=== PATIENT | female | born 1980 | race Caucasian/White ===

== ENCOUNTER 2023-12-01 03:36 | Emergency (ER) | payer OTHER, SELFPAY ==
[2023-12-01 03:37] VITALS: BP 134/77; PULSE 90; RESP 20; O2SAT 88; BMI 35.2
[2023-12-01 04:24] VITALS: BP 126/65; PULSE 88; RESP 21; O2SAT 94
[2023-12-01] MEDS: Ondansetron ODT 4 MG TAB.RAPDIS TRANSLINGU (06:11)
--- NOTE | 2023-12-01 06:13 | ED.OVERDOSE ---
HPI - Overdose General Chief Complaint: Overdose Stated Complaint: od Source: patient Mode of arrival: ambulatory History of Present Illness HPI Narrative: 43-year-old female brought in by EMS after she was found unresponsive, bystanders conducted CPR, a total of 10 mg of Narcan was provided, patient herself denies any attempt to intentionally kill herself, EMS states that she used 3 bags of heroin Related Data Allergies Allergy/AdvReac Type Severity Reaction Status Date / Time No Known Allergies Allergy Unverified 07/05/20 15:30 [No Known Allergies*] Review of Systems Review of Systems: Pertinent positives and negatives as stated in HPI [facility] Past Medical History Source: nursing notes reviewed Social History Social History Unable to assess alcohol history related to: Unknown Smoked in Last 30 Days: No Use of substances other than those prescribed or required for medical reasons: Yes Substance Use Type: Marijuana Substance Use Frequency: Daily Advance Directives: No Patient : No Physical Exam Vital Signs: Vital Signs: Last Vital Signs Temp 98.4 F 12/01/23 06:21 Pulse 90 12/01/23 06:21 Resp 14 12/01/23 06:21 BP 133/69 12/01/23 06:21 Pulse Ox 96 12/01/23 06:21 O2 Del Method Room Air 12/01/23 06:21 O2 Flow Rate 3 12/01/23 04:24 BMI result Body Mass Index 35.2 VITAL SIGNS: Reviewed. GENERAL: Well developed, well nourished, in no acute distress. HEAD: Normocephalic/atraumatic EYES: PERRLA, EOMI EARS: Ext canals without abnormality NOSE: Nares patent bilateral OROPHARYNX: no oral lesions noted, posterior pharynx clear NECK: Supple, no adenopathy LUNGS: Normal breath sounds. No adventitious sounds or accessory muscle use. SpO2<94> CARDIOVASCULAR: Regular rate and rhythm without noted murmurs ABDOMEN: Soft, non-tender, non-distended with bowel sounds. MUSCULOSKELETAL: No tenderness, deformities, or effusions noted on gross inspection. EXTREMITIES: No cyanosis, clubbing or edema. SKIN: Inspection of the skin reveals no rashes NEUROLOGIC: Alert and oriented x 4. Strength and sensation to light touch were grossly intact x 4. Medications Administered Discontinued Medications Generic Name Dose Route Start Last Admin Trade Name Freq PRN Reason Stop Dose Admin Ondansetron HCl 4 mg 12/01/23 06:08 12/01/23 06:11 Ondansetron Odt 4 Mg Tab.Marlene MEJIA 12/01/23 06:09 4 mg ONCE ONE Administration Medical Decision Making Medical Decision Making MDM Narrative: 43-year-old female with history and clinical presentation consistent with accidental overdose, patient required 10 mg of Narcan, she denies any SI/HI and is not interested in detox at this time. Patient had an episode of vomiting which was able to be controlled with 1 sublingual Zofran. She states that she is feeling better and is tolerating p.o. intake and will be discharged. Differential Diagnosis Differential Diagnoses: The differential diagnosis associated with the presentation includes Please see the discussion above Admission/Observation Consideration of admission/observation: Escalation of care including admission/observation considered Please see the discussion above. Critical Care Time Critical Care Time Critical Care Time: Yes Total Critical Care Time: 30 Attestation: I personally attest to this time spent taking care of the patient. Discharge Plan Discharge Clinical Impression: Drug overdose, Heroin use Patient Disposition: Home, Self-Care Instructions: Adult Overdose (ED), Narcotic Use Disorder (ED) Additional Instructions: You have been discharged with home Narcan, please do not hesitate to return to the emergency room should you require assistance for any detox.
[2023-12-01 06:21] VITALS: BP 133/69; PULSE 90; RESP 14; TEMP 36.9; O2SAT 96
--- NOTE | 2023-12-01 06:26 | PC.NURSE ---
pt awake speaking clear full sentences, vomiting, diaphoretic, given 4mg zofran sublingual. now resting comfortably on stretcher - respirations even and unlabored. capnography/nasal cannula removed at MD Travis request, pt sating 96-97% on room air in no distress. plan of care ongoing
--- NOTE | 2023-12-01 08:02 | PC.NURSE ---
PT AWAKE AND TOLERATNG SMALL AMOUNTS OF PO FLUIDS. SHE IS CLEAR FOR DISCHARGE. PT STATES DCF IS COMING TO SEE HER AND ASKED THAT SHE WAIT HERE. SHE WAS AMBULATORY TO THE BATHROOM AND WILL WAIT FOR DCF A COURTESY IN THE ED.
[2023-12-01 08:04] VITALS: BP 140/81; PULSE 91; RESP 16; O2SAT 98
[2023-12-01 08:40] VITALS: BP 146/83; PULSE 78; RESP 18; TEMP 36.6; O2SAT 99
--- NOTE | 2023-12-01 09:36 | PC.NURSE ---
PT WITH DCF STAFF.
--- NOTE | 2023-12-01 11:02 | MHC.RECOVRN ---
Met with pt in ED pivot 2 after consult placed to Addiction Medicine for OUD after an OD. Pt had presented to the ED from home via ambulance for an OD requiring multiple narcan administration by EMS. Pt laying in bed, awake, alert, easily engages in conversation, has sister at bedside who she gave pemission to speak with. Pt reports heroin use for the first time last night. Pt cooperative and states she does not want or plan on using again, agrees to engaging in any treatment that is offered. Pt will call office to make an appointment with provider. Pt denies other questions or concerns. Discussed with Clemencia Díaz APRN.??
--- NOTE | 2023-12-01 11:10 | HO.SUDE ---
Patient was seen in ED after a reported overdose of Heroine at home, requiring multiple doses of Narcan and CPR by first responders. She admits to marijuana use, no other substances, states this is her first time trying Heroine last night. No reported family history of addiction, she was alert and oriented x4, cooperative, and engaged in conversation. No stated history of HIV, Hep C or TB, nor at noted risk at this time. Patient has family at bedside who are engaged and appear supportive. Recommended and patient agrees to make an appointment with our services outpatient. Patient is being discharged with our information, and Narcan.
--- NOTE | 2023-12-01 19:51 | PC.NURSE ---
UNSURE WHERE THIS PATIENT IS, NO ROOM ASSIGNED AND STAFF UNAWARE OF WHERE AND WHO SHE IS
== END 2023-12-01 19:50 | disposition home or self-care (01) ==
PROVIDERS: Emergency Provider Student in an Organized Health Care Education/Training Program
DX: T40.1X1A Poisoning by heroin, accidental (unintentional), initial encounter (principal); Y92.9 Unspecified place or not applicable; Z71.51 Drug abuse counseling and surveillance of drug abuser; F11.10 Opioid abuse, uncomplicated
CPT/HCPCS: 99284

== ENCOUNTER 2023-12-04 08:54 | Outpatient (AMB) | payer OTHER, SELFPAY ==
[2023-12-04 09:05] VITALS: BP 124/88; PULSE 99; O2SAT 94; BMI 34.7
--- NOTE | 2023-12-04 09:05 | A.OFFVISCC_ITS ---
Intake Vital Signs 12/04/23 09:05 Height 5 ft 4 in Weight 202 lb 2 oz BMI 34.7 BP 124/88 Blood Pressure Location Lt radial Position Sitting Pulse 99 Pulse Source Pulse Oximeter Pulse Oximetry (%) 94 Oxygen Delivery Method Room Air Intake Visit Reasons: MAT Intake Note: the patient presents as amat visit Photo Producer Required: No Allergies No Known Allergies [No Known Allergies*] Allergy (Unverified 12/04/23 09:07) Do you need a note to return to daycare/school/sports/work: No HPI MAT HPI Details Patient presents today for intake She was [place] [facility] [place] Her 3 children were home (2 of them minors), although she reports they were sleeping at the time She reports DCF has become involved and required her to have an evaluation She denies regular substance use, states she found the bag on the street 9 months ago, children had a snow day and she was curious ?pt minimizing She used the substance intranasally, denies ever having injected substances She denies any other substance use other than occasional marijuana use Has no current providers, uninterested in any referrals at this time NKA Hx tonsillectomy and LMP- does not get due to depo shot [facility] Social History Unable to assess alcohol history related to: Unknown Substance Use Type: Marijuana Review of Systems Const Reports as per HPI Physical Exam Vital Signs: Last Vital Signs Pulse 99 12/04/23 09:05 BP 124/88 12/04/23 09:05 Pulse Ox 94 12/04/23 09:05 Oxygen Delivery Method Room Air 12/04/23 09:05 BMI result Body Mass Index 34.7 Const General: no acute distress and alert Chest Chest palpation & inspection: normal inspection of the chest and normal palpation of entire chest wall Psych Appearance: grossly normal Mental Status: mental status grossly normal Speech and movement: Normal speech and movement present Affect: normal affect Attitude: cooperative Results AMB 14 Panel Urine Drug Screen Urine Marijuana (THC) Negative Last Edit by Nicole Urias CMA on 12/04/23 09:51 Urine Cocaine Negative Last Edit by Nicole Urias CMA on 12/04/23 09:51 Urine Morphine Negative Last Edit by Nicole Urias CMA on 12/04/23 09:51 Urine Methamphetamine Negative Last Edit by Nicole Urias CMA on 12/04/23 09:51 Urine Amphetamine Negative Last Edit by Nicole Urias CMA on 12/04/23 09:5 1 Urine Benzodiazepine Negative Last Edit by Nicole Urias CMA on 12/04/23 09:51 Urine Barbiturates Negative Last Edit by Nicole Urias CMA on 12/04/23 09: 51 Urine Methadone Negative Last Edit by Nicole Urias CMA on 12/04/23 09:51 Urine Buprenorphine Negative Last Edit by Nicole Urias CMA on 12/04/23 09 :51 Urine Tricyclic Antidepressant Negative Last Edit by Nicole Urias CMA on 12/04/23 09:51 Urine MDMA Negative Last Edit by Nicole Urias CMA on 12/04/23 09:51 Urine Oxycodone Negative Last Edit by Nicole Urias CMA on 12/04/23 09:51 Urine Phencyclidine Negative Last Edit by Nicole Urias CMA on 12/04/23 09 :51 Urine Propoxyphene Negative Last Edit by Nicole Urias CMA on 12/04/23 09: 51 Results Reviewed Results Reviewed: Laboratory Last Values POC Urine Buprenorphine Negative 12/04/23 09:22 POC Urine Morphine Negative 12/04/23 09:22 POC Urine Oxycodone Negative 12/04/23 09:22 POC Urine Methadone Negative 12/04/23 09:22 POC Urine Propoxyphene Negative 12/04/23 09:22 POC Urine Barbiturates Negative 12/04/23 09:22 POC U Tricyclic Antidpr Negative 12/04/23 09:22 POC Urine PCP Negative 12/04/23 09:22 POC Ur Amphetamines Negative 12/04/23 09:22 POC Ur Methamphetamine Negative 12/04/23 09:22 POC Urine MDMA Negative 12/04/23 09:22 POC Ur Benzodiazepine Negative 12/04/23 09:22 POC Urine Cocaine Negative 12/04/23 09:22 POC Ur Marijuana (THC) Negative 12/04/23 09:22 Assessment & Plan Assessment & Plan (1) Encounter to establish care: Code(s): Z76.89 - Persons encountering health services in other specified circumstances Plan -Reviewed with patient to follow up as needed -No need to start any MAT at this time as pt denies substance dependence, declines need for MAT Orders: Orders AMB 14 Panel Urine Drug Screen 12/04/23 Z51.81 - Encounter for therapeutic drug level monitoring Coding Level of Care Code Tele Est Pt Level 4 (20143) Diagnoses Encounter to establish care Z76.89
== END 2023-12-04 09:22 | disposition home or self-care (01) ==
PROVIDERS: Visit Provider Nurse Practitioner Family
DX: F11.90 Opioid use, unspecified, uncomplicated (principal); Z51.81 Encounter for therapeutic drug level monitoring
CPT/HCPCS: 99214

== ENCOUNTER → 2023-12-04 08:54 | Outpatient (BNVA) | payer OTHER, SELFPAY | PROVIDERS: Visit Provider Nurse Practitioner Family | DX: Z76.89 Persons encountering health services in other specified circumstances (principal) | CPT/HCPCS: 80305 ==